=== PATIENT | male | born 1950 | race Caucasian/White ===

== ENCOUNTER 2023-11-29 11:20 | Outpatient (AMB) | payer MEDICARE, SELFPAY ==
--- NOTE | 2023-11-29 11:28 | MHC.PC.OV ---
Vital Signs 11/29/23 11:52 11/29/23 11:53 Height 5 ft 11.06 in Weight 214 lb BMI 29.8 BP 160/82 H 138/86 Blood Pressure Location Lt brachial Lt brachial Position Sitting Sitting Pulse 71 Pulse Source Pulse Oximeter Temp 97.9 F Temp Source Oral Pulse Oximetry (%) 96 Oxygen Delivery Method Room Air Intake Visit Reasons: new patient visit Intake Note: New patient visit Funeral Director'S Assistant Required: No Allergies lisinopril Allergy (Mild, Verified 11/29/23 11:50) Cough hydrocodone Allergy (Unknown, Verified 11/29/23 11:50) Rash Medication List - Last Reconciled 11/29/23 by Germaine Bass PA-C atorvastatin 40 mg PO DAILY hydrochlorothiazide 12.5 mg PO DAILY metoprolol succinate ER 25 mg PO DAILY omeprazole 20 mg PO DAILY Tobacco use date assessed: 11/29/23 Fall risk assessment: No Falls in past year Last assessed Fall Risk: 11/29/23 Dental Screening Dental Screen Date: 11/29/23 Did you have a dental visit in the last 12 months?: No Did you have a dental problem in the last 6 months where you did not have access to dental care?: No Was dental information given to patient?: Patient declined (Patient will find one) HPI new patient visit HPI Details Patient is a 73-year-old male with a significant past medical history of GERD, Key's esophagus, hyperlipidemia, hypertension, impaired fasting glucose, nonischemic cardiomyopathy and PVCs presenting today for a follow up/to reestablish care. He was last seen by myself at [facility] in March 2023. He travels to [place] every winter and has a PCP in [place] as well. CV: Blood pressure today in the office is 138/86. He is on hydrochlorothiazide 12.5 mg, losartan 50 mg, metoprolol 12.5 mg. Cholesterol is controlled with atorvastatin 40 mg. No myalgias. GI: Has a history of GERD and Key's esophagus. Compliant with omeprazole daily. Last endoscopy was 4 years ago. Due this year and wants to do in [place]. Musculoskeletal: both knees replaced this year. -he does report today that he somehow injured the skin on his right lower abdomen and over the last couple days the area of redness has increased in size and it has a little tender. No fevers or chills. Colonoscopy: Due in 2033, done in [place] this winter 2023. [facility] Medical History (Updated 11/29/23 @ 12:22 by Germaine Bass PA-C) PVC (premature ventricular contraction) History of paresthesia Osteoarthritis of knee Non-ischemic cardiomyopathy Bilateral leg weakness HTN (hypertension) Hyperlipidemia Hemorrhoids Barretts esophagus Abnormal glucose level Surgical History (Updated 11/29/23 @ 11:45 by Mendy Poole CMA) History of knee surgery Family History (Updated 11/29/23 @ 11:47 by Mendy Poole CMA) Mother Afib Heart disease Other FH: mental illness Social History (Updated 11/29/23 @ 11:54 by SMA Samir) Housing: House Patient Tobacco Use Status: Former Tobacco user Cigarette Packs Per Day: 1 Years Smoked: 30 e-Cigarette/Vaping Use: Never Used Second Hand Smoke Exposure: No Substance Use Type: Marijuana service: No Current occupational status: retired Cognitive needs: No Hearing needs: No Vision needs: No Questionnaire PHQ-9 Over the last 2 weeks, how often have you been bothered by any of the following problems? 1. Little interest or pleasure in doing things: not at all 2. Feeling down, depressed, or hopeless: not at all 3. Trouble falling or staying asleep, or sleeping too much: not at all 4. Feeling tired or having little energy: not at all 5. Poor appetite or overeating: not at all 6. Feeling bad about yourself - or that you are a failure or have let yourself or your family down: not at all 7. Trouble concentrating on things, such as reading the newspaper or watching television: not at all 8. Moving or speaking so slowly that other people could have noticed. Or the opposite - being so fidgety or restless that you have been moving around a lot more than usual: not at all 9. Thoughts that you would be better off or of hurting yourself in some way: not at all Total score: 0 Depression Screening Interpretation: Negative Depression Screening Done: Yes 71297 - PHQ-9 Billing: Yes Source: Developed by Drs. Dane Morton, Isabela Holly, Jay Hester and colleagues, with an educational rosalba from [employer]. Thrive Questionnaire Date Thrive assessed: 11/29/23 I am a: Patient What is your living situation today?: I have a steady place to live Within the past 12 months, did the food you bought not last and you didn't have the money to get more?: Never true Within the past 12 months, did you worry whether your food would run out before you got money to buy more?: Never true Do you have trouble paying for medicines?: No Do you have trouble getting transportation to medical appointments?: No Do you have trouble paying your heating and electricity bill?: No Do you have trouble taking care of your child, family member or friend?: No Do you have trouble with day-to-day activities such as bathing, preparing meals, shopping, managing finances, etc.?: No Are you currently unemployed and looking for a job?: No Are you interested in more education?: No Please select the resources that you would like help with: None THRIVE Score: 0 AUDIT C Alcohol Use Questionnaire (AUDIT-C) 1. How often do you have a drink containing alcohol?: 4 or more times a week 2. How many drinks containing alcohol do you have on a typical day when you are drinking?: 1 or 2 3. How often do you have six or more drinks on one occasion?: Never Total Score: 4 Score Reviewed/Action Taken: Yes MANOLO-7 AMB Questionnaire MANOLO-7 Date MANOLO - 7 assessed: 11/29/23 Feeling nervous, anxious, or on edge: 0 = Not at all Not being able to stop or control worryin = Not at all Worrying too much about different things: 0 = Not at all Trouble relaxin = Not at all Being so restless that it is hard to sit still: 0 = Not at all Becoming easily annoyed or irritable: 0 = Not at all Feeling afraid as if something awful might happen: 0 = Not at all Total MANOLO-7 score (0-4 normal; 5-9 mild; 10-14 moderate; 15-21 severe): 0 Source: Developed by Drs. Dane Morton, Isabela Holly, Jay Hester and colleagues, with an educational rosalba from [employer]. MANOLO-7 Assessment Billing MANOLO-7 Assessment Tool: MANOLO-7 Assessment 49404 Physical exam (Primary Care) Vital Signs: Last Vital Signs Temp 97.9 F 11/29/23 11:52 Pulse 71 11/29/23 11:52 BP 138/86 11/29/23 11:53 Pulse Ox 96 11/29/23 11:52 Oxygen Delivery Method Room Air 11/29/23 11:52 BMI result Body Mass Index 29.8 Tobacco/Smoking Status: Tobacco use Status Tobacco use date assessed 11/29/23 11/29/23 11:54 Patient Tobacco Use Status Former Tobacco user 11/29/23 11:54 e-Cigarette/Vaping Use Never Used 11/29/23 11:54 PHQ-9: PHQ-9 Score PHQ-9: Total score 0 11/29/23 11:54 Depression Screening Interpretation: Negative Thrive Assessment: Date of Thrive Assessment Date Thrive assessed 11/29/23 11/29/23 11:54 Const Orientation/consciousness: patient oriented x3 HENMT Ears: hearing grossly normal bilaterally Neck Thyroid: Thyroid normal Lymphatic: no lymphadenopathy noted Resp Auscultation: clear to auscultation bilaterally Cardio Rate: regular rate Rhythm: regular rhythm Heart sounds: S1 normal heart sound present and S2 normal heart sound present GI Inspection: Yes normal to inspection Palpation (GI): Soft to palpation and Other GI palpation findings present (nontender, no cva tenderness) Auscultation: normoactive bowel sounds Skin Other: There is a quarter-sized area of erythema that is well demarcated on the right lower abdomen with a center scab. Slight induration, no fluctuance noted. Neuro General: patient oriented x3, gait normal and no focal motor deficits Assessment and Plan Assessment & Plan (1) Hyperlipidemia: Code(s): E78.5 - Hyperlipidemia, unspecified Qualifiers: Hyperlipidemia type: mixed hyperlipidemia Qualified Code(s): E78.2 - Mixed hyperlipidemia Plan: Continue current regimen. LFTs and lipids ordered. (2) HTN (hypertension): Code(s): I10 - Essential (primary) hypertension Qualifiers: Hypertension type: primary hypertension Qualified Code(s): I10 - Essential (primary) hypertension Plan: Increase losartan to 100 mg. Continue hydrochlorothiazide and metoprolol. Follow up in 1 month her blood pressure rechecked. Labs ordered prior to appointment. (3) Barretts esophagus: Code(s): K22.70 - Key's esophagus without dysplasia Plan: We will be following with GI in [place]. Due for an endoscopy this fall. (4) IFG (impaired fasting glucose): Code(s): R73.01 - Impaired fasting glucose Plan: A1c ordered. Asymptomatic. (5) Cellulitis, abdominal wall: Code(s): L03.311 - Cellulitis of abdominal wall Plan: We will start on doxy. Discussed risks and benefits and adverse effects of this medication including GI upset and a photosensitivity rash. He does golf in the summer and advised that he would need to be covered from the sun to avoid this rash. Orders: Orders Comprehensive Arthur. Panel Fast Today E78.5 - Hyperlipidemia, unspecified, I10 - Essential (primary) hypertension, K22.70 - Key's esophagus without dysplasia, R73.01 - Impaired fasting glucose Lipid Panel Today E78.5 - Hyperlipidemia, unspecified, I10 - Essential (primary) hypertension, K22.70 - Key's esophagus without dysplasia, R73.01 - Impaired fasting glucose PSA, Ultra Sensitive Today E78.5 - Hyperlipidemia, unspecified, I10 - Essential (primary) hypertension, K22.70 - Key's esophagus without dysplasia, R06.09 - Other forms of dyspnea, R73.01 - Impaired fasting glucose Hemoglobin A1c Today E78.5 - Hyperlipidemia, unspecified, I10 - Essential (primary) hypertension, K22.70 - Key's esophagus without dysplasia, R73.01 - Impaired fasting glucose TSH reflex Free T4 Today E78.5 - Hyperlipidemia, unspecified, I10 - Essential (primary) hypertension, K22.70 - Key's esophagus without dysplasia, R73.01 - Impaired fasting glucose Complete Blood Count Auto Diff Today E78.5 - Hyperlipidemia, unspecified, I10 - Essential (primary) hypertension, K22.70 - Key's esophagus without dysplasia, R73.01 - Impaired fasting glucose Medications: New losartan 100 mg PO DAILY 90 tabs 3RF doxycycline hyclate 100 mg PO BID 20 tabs 0RF Coding Level of Care Code Est Pt Level 4 (16248) Complex EM visit Add On G2211 Diagnoses Mixed hyperlipidemia E78.2 Hyperlipidemia type: mixed hyperlipidemia Primary hypertension I10 Hypertension type: primary hypertension Barretts esophagus K22.70 IFG (impaired fasting glucose) R73.01 Cellulitis, abdominal wall L03.311 Additional Codes MANOLO-7 Assessment Billing - MANOLO-7 Assessment Tool: MANOLO-7 Assessment 17088 ([id number])
[2023-11-29 11:52] VITALS: BP 160/82; PULSE 71; TEMP 36.6; O2SAT 96; BMI 29.8
[2023-11-29 11:53] VITALS: BP 138/86
== END 2023-11-29 12:24 | disposition home or self-care (01) ==
PROVIDERS: PCP Physician Assistant; Visit Provider Physician Assistant
DX: E78.2 Mixed hyperlipidemia (principal); I10 Essential (primary) hypertension; K22.70 Barrett's esophagus without dysplasia; R73.01 Impaired fasting glucose; L03.311 Cellulitis of abdominal wall
CPT/HCPCS: 99214; G2211

== ENCOUNTER 2023-12-19 09:44 | Outpatient (REF) | payer MEDICARE, SELFPAY ==
[2023-12-19 13:10] LABS: MANUAL DIFF FLAG NO
[2023-12-19 13:12] LABS: Basophils Absolute Auto 0.1 X10*3/uL (0.0-0.2); Eosinophils Absolute Auto 0.3 X10*3/uL (0.0-0.4); Hematocrit 48.7 % (42.0-52.0); Hemoglobin 16.2 g/dl (14.0-18.0); Imm Gran Abs Auto 0.07 X10*3/uL (0.00-0.03); Lymphocytes Absolute Auto 1.4 X10*3/uL (1.2-4.9); Mean Corpuscular HGB Conc 33.3 g/dl (31.0-36.0); Mean Corpuscular Hemoglobin 30.7 pg (27.0-33.0); Mean Corpuscular Volume 92.4 fL (80.0-98.0); Mean Platelet Volume 9.8 fL (9.4-12.4); Monocytes Absolute Auto 0.9 X10*3/uL (0.1-1.2); Monocytes Percent Auto 13.6 % (2-11); Neutrophils Absolute Auto 4.1 x10*3/uL (2.0-8.3); Neutrophils Percent Auto 59.4 % (45-73); Platelet Count 218 X10*3/uL (160-400); Red Blood Count 5.27 X10*6/uL (4.60-5.80); Red Cell Distribution Width 13.2 % (11.0-16.0); White Blood Count 6.9 X10*3/uL (4.8-10.8)
[2023-12-19 13:29] LABS: Alanine Aminotransferase 13 U/L (0-40); Albumin Level 4.1 g/dL (3.5-5.0); Alkaline Phosphatase 104 U/L (39-117); Anion Gap 10 (12-20); Aspartate Amino Transferase 17 U/L (5-37); Bilirubin Total 0.6 mg/dL (0.0-1.0); Blood Urea Nitrogen 29 mg/dL (9-16); Carbon Dioxide 29 mmol/L (22-29); Chloride 105 mmol/L (96-108); Cholesterol 128 mg/dL (<200); Estimated Glomerular Filt Rate 58; Glucose Fasting 105 mg/dL (60-99); HDL Cholesterol 38 mg/dL (>40); LDL Cholesterol Calculated 68 mg/dL (<100); Potassium 4.4 mmol/L (3.3-5.1); Sodium 140 mmol/L (135-145); Total Protein 7.3 g/dL (6.5-8.0); Triglycerides 114 mg/dL (<150)
[2023-12-19 13:41] LABS: Estimated Average Glucose 105 mg/dL; Hemoglobin A1c % 5.3 % (<6.0)
[2023-12-19 13:51] LABS: TSH reflex Free T4 1.45 uIU/mL (0.32-4.0)
[2023-12-23 17:29] LABS: PSA, Ultra Sensitive 0.41 ng/mL
== END 2023-12-19 09:45 | disposition home or self-care (01) ==
LOC: HO.WFDLDS 09:44
PROVIDERS: Visit Provider Physician Assistant
DX: R06.09 Other forms of dyspnea (principal); R73.01 Impaired fasting glucose; K22.70 Barrett's esophagus without dysplasia; E78.5 Hyperlipidemia, unspecified; I10 Essential (primary) hypertension; Z12.5 Encounter for screening for malignant neoplasm of prostate
CPT/HCPCS: 36415; 80053; 80061; 83036; 84153; 84443; 85025

== ENCOUNTER 2024-01-02 13:51 | Outpatient (AMB) | payer MEDICARE, SELFPAY ==
--- NOTE | 2024-01-02 13:55 | MHC.PC.OV ---
Vital Signs 01/02/24 13:57 Height 5 ft 11.06 in Weight 216 lb 6 oz BMI 30.1 BP 122/70 Blood Pressure Location Lt brachial Position Sitting Pulse 64 Pulse Source Pulse Oximeter Pulse Oximetry (%) 95 Oxygen Delivery Method Room Air Intake Visit Reasons: bp check Intake Note: Follow up hypertension Medication Manager Required: No Allergies lisinopril Allergy (Mild, Verified 01/02/24 13:56) Cough hydrocodone Allergy (Unknown, Verified 01/02/24 13:56) Rash Tobacco use date assessed: 11/29/23 Dental Screening Dental Screen Date: 11/29/23 HPI bp check HPI Details Patient is a 73-year-old male with a significant past medical history of hypertension, hyperlipidemia, impaired fasting glucose who presents today for a follow up. CV: At our last visit I increased his losartan to 100 mg. He states he is tolerating this well. Blood pressure today in the office is 122/70. He is also on metoprolol 25 mg, hydrochlorothiazide 12.5 mg. Cholesterol is well-controlled with atorvastatin 40 mg. No chest pain, shortness a breath or palpitations. Nephro: Last labs to come back with a slightly decreased GFR. Advised him to avoid NSAIDs. We will monitor this. Musculoskeletal: He does intermittently get arthralgias. He was using ibuprofen in the past but states he will take Tylenol. At our last visit he did have an abdominal wall cellulitis which has resolved. Completed doxycycline. [facility] Medical History (Updated 01/02/24 @ 14:10 by Germaine Bass PA-C) PVC (premature ventricular contraction) History of paresthesia Osteoarthritis of knee Non-ischemic cardiomyopathy Bilateral leg weakness HTN (hypertension) Hyperlipidemia Hemorrhoids Barretts esophagus Abnormal glucose level Surgical History (Updated 11/29/23 @ 11:45 by Mendy Poole CMA) History of knee surgery Family History (Updated 11/29/23 @ 11:47 by Mendy Poole CMA) Mother Afib Heart disease Other FH: mental illness Social History (Updated 11/29/23 @ 11:54 by SMA Samir) Housing: House Patient Tobacco Use Status: Former Tobacco user Cigarette Packs Per Day: 1 Years Smoked: 30 e-Cigarette/Vaping Use: Never Used Second Hand Smoke Exposure: No Substance Use Type: Marijuana service: No Current occupational status: retired Cognitive needs: No Hearing needs: No Vision needs: No Questionnaire Thrive Questionnaire Date Thrive assessed: 11/29/23 MANOLO-7 AMB Questionnaire MANOLO-7 Date MANOLO - 7 assessed: 11/29/23 Source: Developed by Drs. Dane Morton, Isabela Holly, Jay Hester and colleagues, with an educational rosalba from [employer]. Physical exam (Primary Care) Vital Signs: Last Vital Signs Pulse 64 01/02/24 13:57 BP 122/70 01/02/24 13:57 Pulse Ox 95 01/02/24 13:57 Oxygen Delivery Method Room Air 01/02/24 13:57 BMI result Body Mass Index 30.1 Tobacco/Smoking Status: Tobacco use Status Tobacco use date assessed 11/29/23 01/02/24 13:59 Patient Tobacco Use Status Former Tobacco user 01/02/24 13:59 e-Cigarette/Vaping Use Never Used 01/02/24 13:59 Thrive Assessment: Date of Thrive Assessment Date Thrive assessed 11/29/23 01/02/24 13:59 Const Orientation/consciousness: patient oriented x3 HENMT Ears: hearing grossly normal bilaterally Neck Thyroid: Thyroid normal Lymphatic: no lymphadenopathy noted Resp Auscultation: clear to auscultation bilaterally Cardio Rate: regular rate Rhythm: regular rhythm Heart sounds: S1 normal heart sound present and S2 normal heart sound present GI Inspection: Yes normal to inspection Palpation (GI): Soft to palpation and Other GI palpation findings present (nontender, no cva tenderness) Auscultation: normoactive bowel sounds Rectal Exam - Male: Yes deferred Skin General skin exam: no rashes or lesions noted Neuro General: patient oriented x3, gait normal and no focal motor deficits Results Reviewed Results Reviewed: Laboratory Tests 12/19/23 09:46 WBC 6.9 RBC 5.27 Hgb 16.2 Hct 48.7 Plt Count 218 Sodium 140 Potassium 4.4 Chloride 105 Carbon Dioxide 29 Anion Gap 10 L BUN 29 H Creatinine 1.23 Hemoglobin A1c % 5.3 AST 17 ALT 13 Triglycerides 114 Cholesterol 128 LDL Cholesterol, Calc 68 HDL Cholesterol 38 L PSA Ultra-Sensitive 0.41 TSH 1.45 Assessment and Plan Assessment & Plan (1) HTN (hypertension): Code(s): I10 - Essential (primary) hypertension Qualifiers: Hypertension type: primary hypertension Qualified Code(s): I10 - Essential (primary) hypertension Plan: Continue current regimen (2) CKD stage 3a, GFR 45-59 ml/min: Code(s): N18.31 - Chronic kidney disease, stage 3a Plan: Reviewed labs with patient. Coding Level of Care Code Est Pt Level 4 (27984) Diagnoses Primary hypertension I10 Hypertension type: primary hypertension CKD stage 3a, GFR 45-59 ml/min N18.31
[2024-01-02 13:57] VITALS: BP 122/70; PULSE 64; O2SAT 95; BMI 30.1
== END 2024-01-02 16:30 | disposition home or self-care (01) ==
PROVIDERS: PCP Physician Assistant; Visit Provider Physician Assistant
DX: I12.9 Hypertensive chronic kidney disease with stage 1 through stage 4 chronic kidney disease, or unspecified chronic kidney disease (principal); N18.31 Chronic kidney disease, stage 3a
CPT/HCPCS: 99214